=== PATIENT | male | born 1950 | race Caucasian/White ===

== ENCOUNTER → 2016-11-12 | Outpatient (CLI) | payer MEDICARE, OTHER | LOC: SL 20:29 | PROVIDERS: ATTEND Family Medicine | DX: G47.30 Sleep apnea, unspecified (principal); G47.00 Insomnia, unspecified; R06.83 Snoring; R53.83 Other fatigue; I10 Essential (primary) hypertension; E11.9 Type 2 diabetes mellitus without complications ==

== ENCOUNTER → 2017-01-27 | Outpatient (CLI) | payer MEDICARE, OTHER | LOC: SL 21:23 | PROVIDERS: ATTEND Family Medicine | DX: G47.30 Sleep apnea, unspecified (principal); R09.02 Hypoxemia ==

== ENCOUNTER → 2017-10-01 | Outpatient (CLI) | payer MEDICARE, OTHER | END | disposition home or self-care (01) | LOC: GMAJ 10:23 | PROVIDERS: ATTEND Family Medicine | DX: Z12.5 Encounter for screening for malignant neoplasm of prostate (principal); R53.81 Other malaise; I10 Essential (primary) hypertension; Z79.4 Long term (current) use of insulin | CPT/HCPCS: 84403; 84443; G0103 ==

== ENCOUNTER → 2017-11-28 | Outpatient (CLI) | payer MEDICARE, OTHER ==
--- NOTE | 2017-11-30 14:41 | CT ---
EXAM DESCRIPTION: Chest w/o Contrast : Computed Tomography. CLINICAL HISTORY: COUGH W/ CHEST PAIN COMPARISON: None. TECHNIQUE: Spiral-axial scans at 5.0 mm intervals through the lungs and thorax without IV contrast. 2.5 mm lung algorithm axial reconstructions. Coronal and sagittal 2.0 Mm reconstructions. Total Exam DLP: 1250.03 mGy-cm. This exam was performed according to our departmental dose-optimization program which includes automated exposure control, adjustment of the mA and/or kV according to patient size and/or use of iterative reconstruction technique; to reduce radiation dose to as low as reasonably achievable (ALARA). FINDINGS: Minimal bilateral peribronchial wall cuffing. Atelectasis versus scarring in the inferior lingula. Cluster of small pulmonary cysts or blebs in the lateral right upper lobe (series 4, image 41). Bilateral basilar pleural thickening versus small effusion. No abnormal nodules large infiltrates or masses. No pneumothorax bilaterally. Evaluation of mediastinum and hilum limited due to lack of IV contrast. Heterogeneous density in the bilateral thyroid gland. No large soft tissue masses in the axilla mediastinum or hilum. Calcification inferior to the proximal right bronchus. Coronary artery calcifications. Spleen and adrenal glands normal size and density. Gallbladder partially visualized. Possible cysts in the left kidney but evaluation is limited due to lack of IV contrast. Multiple levels of bridging osteophytes anteriorly thoracic spine. Narrowing of the thoracic disc spaces. Mild scoliosis. Arthrosis bilateral shoulder joints. No bone destruction. IMPRESSION: 1. Cluster of small pulmonary cysts or blebs in the right upper lobe. No significantly abnormal nodules. No masses bilaterally. Peribronchial wall cuffing is most likely chronic. 2. No pleural effusion or pneumothorax. Bilateral pleural thickening large or small effusion. Probable renal cysts. Confirmation requires CT scan with IV contrast or renal ultrasound. Electronically signed by: Anmol Solano MD 11/30/2017 2:40 PM [employer] Workstation: [id number]
== END ==
LOC: CT 09:20
PROVIDERS: ATTEND Internal Medicine Endocrinology, Diabetes & Metabolism
DX: R05 Cough (principal); R07.9 Chest pain, unspecified; J98.4 Other disorders of lung

== ENCOUNTER → 2018-01-20 | Outpatient (CLI) | payer MEDICARE, OTHER | LOC: LAB.O 10:44 | PROVIDERS: ATTEND Surgery | DX: L02.232 Carbuncle of back [any part, except buttock and flank] (principal) ==

== ENCOUNTER → 2018-05-28 | Outpatient (CLI) | payer MEDICARE, OTHER ==
[~2018-05-28] MED LIST: IPRATROPIUM/ALBUTEROL 3 ML VIAL NEB ONE
== END ==
LOC: RESP 10:00
PROVIDERS: ATTEND Family Medicine
DX: R06.02 Shortness of breath (principal)
CPT/HCPCS: 94060; J7620

== ENCOUNTER → 2019-02-02 | Outpatient (CLI) | payer MEDICARE, OTHER | LOC: GMAE 09:20 | PROVIDERS: ATTEND Family Medicine | DX: E11.9 Type 2 diabetes mellitus without complications (principal); R53.81 Other malaise; D50.9 Iron deficiency anemia, unspecified; E53.8 Deficiency of other specified B group vitamins; E55.9 Vitamin D deficiency, unspecified; E56.9 Vitamin deficiency, unspecified; I10 Essential (primary) hypertension; Z98.84 Bariatric surgery status ==

== ENCOUNTER → 2019-05-17 | Outpatient (CLI) | payer MEDICARE, OTHER | LOC: GMAE 11:14 | PROVIDERS: ATTEND Family Medicine | DX: E53.8 Deficiency of other specified B group vitamins (principal); E11.9 Type 2 diabetes mellitus without complications; E55.9 Vitamin D deficiency, unspecified; R53.81 Other malaise; D50.9 Iron deficiency anemia, unspecified; E56.9 Vitamin deficiency, unspecified; I10 Essential (primary) hypertension; Z98.84 Bariatric surgery status ==

== ENCOUNTER → 2019-11-09 | Outpatient (CLI) | payer MEDICARE, OTHER | LOC: GMAE 09:25 | PROVIDERS: ATTEND Family Medicine | DX: E53.8 Deficiency of other specified B group vitamins (principal); R53.83 Other fatigue; E55.9 Vitamin D deficiency, unspecified; Z98.84 Bariatric surgery status; E56.9 Vitamin deficiency, unspecified; R12 Heartburn; R53.81 Other malaise; R06.02 Shortness of breath; R60.9 Edema, unspecified; K21.9 Gastro-esophageal reflux disease without esophagitis; K64.9 Unspecified hemorrhoids; E78.00 Pure hypercholesterolemia, unspecified; I10 Essential (primary) hypertension; E78.1 Pure hyperglyceridemia; M25.569 Pain in unspecified knee; G47.33 Obstructive sleep apnea (adult) (pediatric); E11.65 Type 2 diabetes mellitus with hyperglycemia; M25.50 Pain in unspecified joint; G47.9 Sleep disorder, unspecified; Z79.4 Long term (current) use of insulin ==

== ENCOUNTER → 2020-02-15 | Outpatient (CLI) | payer MEDICARE, OTHER | LOC: GMAE 11:21 | PROVIDERS: ATTEND Family Medicine | DX: Z12.5 Encounter for screening for malignant neoplasm of prostate (principal); E11.9 Type 2 diabetes mellitus without complications; E78.2 Mixed hyperlipidemia | CPT/HCPCS: 84443; G0103 ==

== ENCOUNTER → 2020-06-28 | Outpatient (CLI) | payer MEDICARE, OTHER ==
--- NOTE | 2020-06-28 09:54 | CT ---
EXAM DESCRIPTION: Head CLINICAL HISTORY: 69 years Male, FALL COMPARISON: None. TECHNIQUE: Axial images obtained from the skull base to the vertex without intravenous contrast with images. Coronal and sagittal reformations provided. This exam was performed according to our departmental dose-optimization program, which includes automated exposure control, adjustment of the mA and/or kV according to patient size and/or use of iterative reconstruction technique. Time Last Seen Well (If known) for Code Stroke: n/a FINDINGS: Brain Parenchyma, ventricles, meninges, and extra-axial spaces: Mild general cerebral atrophy. Mild Nonspecific white matter hypodensities in the cerebral hemispheres likely related to ischemic small vessel disease. Possible difficulty differentiating a small acute infarction given these hypodensities. No acute intracranial hemorrhage. Acute subdural hematoma along the cerebral falx measuring up to 6 mm in thickness transverse. On coronal image 46, there may be a small subarachnoid hemorrhagic component versus extension of the subdural hematoma towards the left frontal lobe measuring up to 5 mm. There may be a very minimal left hemispheric subdural hematoma measuring no greater than 2 mm in thickness overlying the left frontoparietal lobe. There is no significant mass effect upon the adjacent brain parenchyma. No midline shift or herniation. Vascular: Atherosclerosis is within the carotid siphons. Calvarium, paranasal sinuses, mastoids, and orbits: Moderate posterior superior soft tissue scalp hematoma just right of midline without underlying fracture. Visualized paranasal sinuses and mastoid air cells clear. Orbits unremarkable. IMPRESSION: 1. 6 mm thick subdural hematoma along the cerebral falx with small pedunculated component versus subarachnoid hemorrhage measuring 5 mm extending towards the left frontal lobe as described above. 2. Possibly 2 mm thick subdural hematoma overlying the left frontoparietal lobe as well. No significant mass effect or midline shift, or herniation. 3. No acute intraparenchymal hemorrhage. 4. Moderate posterior superior soft tissue scalp hematoma without underlying fracture. Electronically signed by: Dusty Gibson MD 06/28/2020 9:52 AM CDT
== END | disposition home or self-care (01) ==
LOC: GMAE 09:06
PROVIDERS: ATTEND Family Medicine
DX: S01.01XA Laceration without foreign body of scalp, initial encounter (principal); W18.30XA Fall on same level, unspecified, initial encounter

== ENCOUNTER → 2020-08-18 | Outpatient (CLI) | payer MEDICARE, OTHER | LOC: GMAE 09:58 | PROVIDERS: ATTEND Family Medicine | DX: E11.9 Type 2 diabetes mellitus without complications (principal) ==